=== PATIENT | female | born 1940 | race Caucasian/White ===

== ENCOUNTER 2017-11-15 12:36 | Emergency (ER) | payer MEDICARE, BC ==
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
[2017-11-15 13:46] VITALS: BP 167/54
== END 2017-11-15 13:46 | disposition home or self-care (01) ==
LOC: ER 12:36
DX: S00.03XA Contusion of scalp, initial encounter (principal); W00.0XXA Fall on same level due to ice and snow, initial encounter; Y93.9 Activity, unspecified; Y92.007 Garden or yard of unspecified non-institutional (private) residence as the place of occurrence of the external cause